=== PATIENT | female | born 1930 | race Caucasian/White ===

== ENCOUNTER → 2016-12-22 | Outpatient (CLI) | payer MEDICARE, OTHER | END | disposition home or self-care (01) | LOC: GMAJ 10:35 | PROVIDERS: ATTEND Family Medicine | DX: I50.9 Heart failure, unspecified (principal); Z79.899 Other long term (current) drug therapy; M25.559 Pain in unspecified hip ==

== ENCOUNTER → 2017-02-23 | Outpatient (CLI) | payer MEDICARE, OTHER | LOC: GMAJ 14:00 | PROVIDERS: ATTEND Family Medicine | DX: I50.9 Heart failure, unspecified (principal) ==

== ENCOUNTER → 2017-03-02 | Outpatient (CLI) | payer MEDICARE, OTHER | LOC: GMAJ 14:43 | PROVIDERS: ATTEND Family Medicine | DX: R31.0 Gross hematuria (principal) ==

== ENCOUNTER → 2017-04-11 | Outpatient (CLI) | payer MEDICARE, OTHER | LOC: GMAJ 14:46 | PROVIDERS: ATTEND Family Medicine | DX: I50.9 Heart failure, unspecified (principal); M10.9 Gout, unspecified; Z79.899 Other long term (current) drug therapy ==

== ENCOUNTER → 2017-10-04 | Outpatient (CLI) | payer MEDICARE, OTHER | END | disposition home or self-care (01) | LOC: GMAJ 14:26 | PROVIDERS: ATTEND Family Medicine | DX: I50.9 Heart failure, unspecified (principal); E03.9 Hypothyroidism, unspecified ==

== ENCOUNTER → 2017-12-05 | Outpatient (CLI) | payer MEDICARE, OTHER | LOC: GMAJ 18:28 | PROVIDERS: ATTEND Family Medicine | DX: N39.0 Urinary tract infection, site not specified (principal) ==

== ENCOUNTER → 2018-01-03 | Outpatient (CLI) | payer MEDICARE, OTHER | LOC: GMAJ 14:58 | PROVIDERS: ATTEND Family Medicine | DX: R53.83 Other fatigue (principal) ==

== ENCOUNTER → 2018-07-10 | Outpatient (CLI) | payer MEDICARE, OTHER | LOC: GMAJ 14:18 | PROVIDERS: ATTEND Family Medicine | DX: E03.8 Other specified hypothyroidism (principal) ==